=== PATIENT | male | born 1945 | race Caucasian/White ===

== ENCOUNTER 2024-05-27 01:23 | Emergency (ER) | payer MEDICAID ==
[~2024-05-27] VITALS: Ht 172.7 cm; Wt 76.3 kg
[2024-05-27 01:23] VITALS: O2SAT 99
[2024-05-27] MEDS ORDERED: OLAN5TAB70 PO (01:56)
[2024-05-27] MEDS ORDERED: ASPI81TA31 PO (01:56)
[2024-05-27] MEDS ORDERED: CARV3.122 PO (01:56)
[2024-05-27] MEDS ORDERED: FAMO-132 PO (01:56)
[2024-05-27] MEDS ORDERED: ATOR40TA PO (01:56)
[2024-05-27] MEDS ORDERED: NITR0.4T SL (01:56)
[2024-05-27] MEDS ORDERED: APIX5TAB PO (01:56)
[2024-05-27] MEDS ORDERED: DIGO125T PO (01:56)
[2024-05-27] MEDS ORDERED: ACET325T53 PO (01:56)
[2024-05-27] MEDS ORDERED: SACU1TAB PO (01:56)
[2024-05-27 02:02] LABS: BASOPHILS % (AUTO) 0.5 % (0.0-2.0); EOSINOPHILS # (AUTO) 0.1 K/uL (0.0-0.7); EOSINOPHILS % (AUTO) 1.1 % (0.0-7.0); HEMATOCRIT 26.5 % (36.7-47.1); HEMOGLOBIN 9.1 g/dL (12.5-16.3); LYMPHOCYTES # (AUTO) 1.9 K/uL (0.8-4.8); LYMPHOCYTES % (AUTO) 40.5 % (20.5-51.5); MEAN CORPUSCULAR HEMOGLOBIN 31.7 uug (23.8-33.4); MEAN CORPUSCULAR HGB CONC 34 g/dL (32.5-36.3); MEAN CORPUSCULAR VOLUME 92.6 fL (73.0-96.2); MONOCYTES # (AUTO) 0.4 K/uL (0.1-1.30); MONOCYTES % (AUTO) 8.6 % (0.0-11.0); NEUTROPHILS # (AUTO) 2.3 K/uL (1.8-8.9); NEUTROPHILS % (AUTO) 49.3 % (38.5-71.5); PLATELET COUNT (AUTO) 166 K/uL (152-348); RED BLOOD CELL COUNT(AUTO) 2.86 MIL/uL (4.06-5.63); RED CELL DISTRIBUTION WIDTH 15.8 % (12.1-16.2); WHITE BLOOD COUNT (AUTO) 4.6 K/uL (3.6-10.2)
[2024-05-27 02:05] LABS: DIFFERENTIAL COMMENT 1
[2024-05-27 02:08] LABS: CALCIUM 7.7 mg/dL (8.5-10.1); CARBON DIOXIDE 27 mmol/L (21-32); CHLORIDE 105 mmol/L (98-107); CREATININE 0.9 mg/dL (0.6-1.3); GLUCOSE 134 mg/dL (74-106); POTASSIUM 3.9 mmol/L (3.5-5.1); SODIUM SERUM 134 mmol/L (136-145); UREA NITROGEN, BLOOD 27 mg/dL (7-18)
[2024-05-27 02:20] LABS: ALANINE AMINOTRANSFERASE 25 U/L (16-63); ALBUMIN 2.2 g/dL (3.4-5.0); ALKALINE PHOSPHATASE 51 U/L (50-136); ASPARTATE AMINOTRANSFERASE 22 U/L (15-37); BILIRUBIN,TOTAL 0.6 mg/dL (0.2-1.0); NT-PRO BNP 1606 pg/mL (0-125); TOTAL PROTEIN, SERUM 5.9 g/dL (6.4-8.2)
[2024-05-27 02:32] LABS: ABG HCO3 23.2 mmol/L (21.0-28.0); ABG PCO2 28.4 mmHg (35.0-48.0); ABG PO2 134.6 mmHg (83.0-108.0); ABG SITE LEFT RADIAL; ABG TOTAL HEMOGLOBIN 9.7 G/dL (13.5-17.5); COHb 0.3 % (0.5-1.5); MetHb 0.1 % (0.0-1.5); O2Hb 98.5 % (94.0-98.0)
[2024-05-27] MEDS: ACETAMINOPHEN 500 MG TABLET PO ONE (02:37)
[2024-05-27] MEDS: CEFTRIAXONE 1 G in IV DEXTROSE 5% 50 ML IV ONE (02:38)
[2024-05-27] MEDS: IV NORMAL SALINE 1000 ML BAG IV ONE (02:38)
[2024-05-27] MEDS ORDERED: LORAZEPAM 2 MG/1 ML VIAL ONE (02:44)
[2024-05-27] MEDS ORDERED: CEFTRIAXONE /D5W 50ML IVPB **ER PYXIS IV ONE (03:02)
[2024-05-27] MEDS: LORAZEPAM 2 MG/1 ML VIAL IV ONE (03:11)
== END 2024-05-27 04:16 | disposition short-term general hospital (02) ==
LOC: ER 01:23
DX: R50.9 Fever, unspecified (principal); E78.5 Hyperlipidemia, unspecified; R06.00 Dyspnea, unspecified; I11.9 Hypertensive heart disease without heart failure; I25.10 Atherosclerotic heart disease of native coronary artery without angina pectoris; Z79.01 Long term (current) use of anticoagulants; Z79.82 Long term (current) use of aspirin; Z79.899 Other long term (current) drug therapy
CPT/HCPCS: 36415; 36600; 71045; 83605; 84484; 85025; 85730; 87040; A4606; A4663; J0696; J2060; J7040